=== PATIENT | female | born 1960 | race Caucasian/White ===

== ENCOUNTER → 2021-10-29 | Outpatient (CLI) | payer SELFPAY ==
--- NOTE | 2021-10-30 06:04 | MR ---
EXAMINATION TYPE: MR pelvis wo con DATE OF EXAM: 10/29/2021 COMPARISON: None HISTORY: Pain Multiplanar multiecho imaging of the pelvis with no contrast. Uterus is anteverted. Endometrium appears normal. No free fluid in the pelvis. Bladder distends jeanie hly. No evidence of adnexal mass. The bony pelvis is intact. The hip joints are intact. Sacroiliac terrence ints are intact. No evidence of a fracture. IMPRESSION: Negative MR scan of the pelvis. No adnexal mass or free fluid. Normal uterus.
== END | disposition home or self-care (01) ==
LOC: RADMRIMAIN 06:42
DX: R10.11 Right upper quadrant pain (principal)
CPT/HCPCS: 72195